=== PATIENT | female | born 1980 | race African-American/Black ===

== ENCOUNTER 2020-08-26 10:17 | Emergency (ER) | payer SELFPAY ==
[~2020-08-26] VITALS: Ht 172.7 cm; Wt 86.0 kg
[2020-08-26] MEDS ORDERED: SODIUM CHLORIDE 0.9% 1,000 ML IV ONE (10:45)
[2020-08-26] MEDS ORDERED: NALOXONE HCL 1 MG/ML 2ML VIAL IV ONE (11:15)
[2020-08-26 11:31] LABS: CLARITY URINE CLEAR (CLEAR); COLOR URINE DARK YELLOW (YELLOW); KETONES URINE NEGATIVE (NEGATIVE); LEUKOCYTE ESTERASE URINE NEGATIVE (NEGATIVE); NITRITE URINE NEGATIVE (NEGATIVE); OCCULT BLOOD URINE NEGATIVE (NEGATIVE); PH URINE 5.5 (4.5-8.0); PROTEIN URINE 1+ (NEGATIVE); SPECIFIC GRAVITY URINE 1.034 (1.005-1.030)
[2020-08-26 11:34] LABS: BASOPHILS % 0.4 % (0.0-2.0); EOSINOPHILS % 3.8 % (0.0-5.0); HEMATOCRIT. 33.8 % (36.0-48.0); HEMOGLOBIN. 10.8 g/dL (12.0-16.0); LYMPHOCYTES % 25.8 % (20.0-50.0); MEAN CORPUSCULAR HEMOGLOBIN 24.3 pg (28.0-32.0); MEAN PLATELET VOLUME 9.2 fl (7.4-10.4); MONOCYTES % 10.5 % (2.0-8.0); NEUTROPHILS % 59.5 % (40.0-76.0); PLATELET 199 x1000/uL (130-400); RED BLOOD CELL COUNT 4.45 mill/uL (4.2-5.4); RED CELL DISTRIBUTION WIDTH 21.2 % (11.6-14.6)
[2020-08-26 11:35] LABS: BG BASE EXCESS -1.8 mmol/L (-2.0-2.0); BG CARBOXYHEMOGLOBIN 4.6 % (0.5-1.5); BG DEOXYHEMOGLOBIN 3.6 % (0.0-5.0); BG FRACTION INSPIRED OXYGEN 21; BG HCO3 ACT 24.2 mmol/L (22.0-26.0); BG METHEMOGLOBIN 0.3 % (0.0-1.5); BG OXYGEN SATURATION 96.2 % (92.0-98.5); BG OXYHEMOGLOBIN 91.5 % (94.0-97.0); BG PCO2 45.8 mmHg (35.0-45.0); BG PO2 85.4 mmHg (75.0-100.0); BG SAMPLE SITE RIGHT RADIAL; BG TOTAL HEMOGLOBIN 12.1 g/dL (12.0-18.0); BG VENT MODE ROOM AIR
[2020-08-26 11:42] LABS: CHLORIDE 110 mEq/L (98-107)
[2020-08-26 11:54] LABS: ETHANOL BLOOD < 10 mg/dL
[2020-08-26 12:01] LABS: HCG SCREEN NEGATIVE
[2020-08-26 12:06] LABS: CREATINE KINASE 1844 IU/L (26-192)
[2020-08-26 12:55] LABS: *BARBITURATES SCREEN URINE NEGATIVE (NEGATIVE); CANNABINOID URINE SCREEN PRESUMTIVE POSITIVE (NEGATIVE); METHADONE URINE SCREEN NEGATIVE (NEGATIVE); OPIATES URINE SCREEN NEGATIVE (NEGATIVE); PHENCYCLIDINE URINE SCREEN NEGATIVE (NEGATIVE)
[2020-08-26 12:56] LABS: *AMPHETAMINES SCREEN URINE PRESUMTIVE POSITIVE (NEGATIVE); *BENZODIAZEPINES SCREEN URINE NEGATIVE (NEGATIVE); *COCAINE SCREEN URINE NEGATIVE (NEGATIVE)
[2020-08-26 14:57] VITALS: BP 138/81
== END 2020-08-26 14:59 | disposition left against medical advice (07) ==
LOC: ER 10:17 → EDBD 10:17 → ER 14:59
DX: G93.40 Encephalopathy, unspecified (principal); F12.10 Cannabis abuse, uncomplicated; F19.10 Other psychoactive substance abuse, uncomplicated; F17.200 Nicotine dependence, unspecified, uncomplicated
CPT/HCPCS: 36415; 36600; 70450; 71045; 80053; 80305; 80307; 80320; 80329; 81003; 81025; 82140; 82375; 82550; 82805; 83690; 84443; 84703; 85025; 93005; 96374; 99285; J2310; J7030; G0480

== ENCOUNTER 2020-09-01 02:13 | Emergency (ER) | payer SELFPAY ==
[~2020-09-01] VITALS: Ht 167.6 cm; Wt 71.0 kg
[2020-09-01] MEDS ORDERED: LEVETIRACETAM 1000MG/100ML 100 ML IV ONE (03:00)
[2020-09-01] MEDS ORDERED: SODIUM CHLORIDE 0.9% 1,000 ML IV ONE (03:00)
[2020-09-01 05:01] LABS: BASOPHILS % 0.3 % (0.0-2.0); EOSINOPHILS % 4.2 % (0.0-5.0); HEMATOCRIT. 34.3 % (36.0-48.0); HEMOGLOBIN. 10.9 g/dL (12.0-16.0); LYMPHOCYTES % 34.1 % (20.0-50.0); MEAN CORPUSCULAR HEMOGLOBIN 24.2 pg (28.0-32.0); MEAN CORPUSCULAR VOLUME 76.2 fL (81.0-99.0); MEAN PLATELET VOLUME 8.8 fl (7.4-10.4); MONOCYTES % 12.9 % (2.0-8.0); NEUTROPHILS % 48.5 % (40.0-76.0); PLATELET 198 x1000/uL (130-400); RED BLOOD CELL COUNT 4.51 mill/uL (4.2-5.4); RED CELL DISTRIBUTION WIDTH 20.4 % (11.6-14.6)
[2020-09-01 05:10] LABS: CHLORIDE 112 mEq/L (98-107)
[2020-09-01 05:14] LABS: ETHANOL BLOOD < 10 mg/dL
[2020-09-01 05:20] LABS: HCG SCREEN NEGATIVE
[2020-09-01] MEDS ORDERED: PHENYTOIN SODIUM EXTENDED 100MG CAPSULE PO NR (05:45)
[2020-09-01 08:04] VITALS: BP 110/60
== END 2020-09-01 08:10 | disposition home or self-care (01) ==
LOC: ER 02:13
DX: R56.9 Unspecified convulsions (principal)
CPT/HCPCS: 36415; 80053; 80185; 80320; 84484; 84703; 85025; 96361; 96365; 99284; J1953; G0480

== ENCOUNTER 2020-09-03 12:32 | Emergency (ER) | payer MEDICAID ==
[~2020-09-03] VITALS: Ht 170.2 cm; Wt 75.0 kg
[2020-09-03 12:37] VITALS: BP 100/64
== END 2020-09-03 13:44 | disposition left against medical advice (07) ==
LOC: ER 12:49
DX: R68.89 Other general symptoms and signs (principal)
CPT/HCPCS: 99283